=== PATIENT | female | born 2000 | race Caucasian/White ===

== ENCOUNTER 2023-07-10 21:18 | Emergency (ER) | payer SELFPAY ==
[~2023-07-10] VITALS: Ht 170.2 cm; Wt 104.3 kg
[2023-07-10 21:27] VITALS: TEMP 98.7
[2023-07-10] MEDS ORDERED: ACETAMINOPHEN 325 MG TABLET ONE (21:46)
[2023-07-10] MEDS: ACETAMINOPHEN 325 MG TABLET PO ONE (21:49)
[2023-07-11 02:05] VITALS: BP 128/79; O2SAT 98
== END 2023-07-11 02:37 | disposition home or self-care (01) ==
LOC: ER 21:20
DX: S92.352A Displaced fracture of fifth metatarsal bone, left foot, initial encounter for closed fracture (principal); F31.9 Bipolar disorder, unspecified; F20.9 Schizophrenia, unspecified; Z88.0 Allergy status to penicillin; W01.0XXA Fall on same level from slipping, tripping and stumbling without subsequent striking against object, initial encounter; Y93.89 Activity, other specified; Y92.89 Other specified places as the place of occurrence of the external cause; Y99.8 Other external cause status
CPT/HCPCS: 73610-TC; 73630-TC